=== PATIENT | female | born 1960 | race Caucasian/White ===

== ENCOUNTER → 2020-04-15 | Outpatient (CLI) | payer OTHER ==
[2020-04-15 10:28] LABS: BASO # 0.1 10^3/uL (0.0-0.2); BASO % 1.4 % (0.0-1.0); EOS # 0.1 10^3/uL (0.0-0.5); EOS % 3.2 % (0.0-3.0); HEMATOCRIT 41.6 % (36.0-47.0); HEMOGLOBIN 13.2 g/dl (12.0-15.5); LYMPH # 1.7 10^3/uL (1.5-5.0); LYMPH % 38.2 % (24.0-44.0); MEAN CORPUSCULAR HEMOGLOBIN 30.1 pg (27.0-33.0); MEAN CORPUSCULAR HGB CONC 31.7 g/dl (32.0-36.5); MEAN CORPUSCULAR VOLUME 94.8 fl (80.0-96.0); MONO # 0.5 10^3/uL (0.0-0.8); MONO % 12.4 % (0.0-5.0); NEUTROPHILS # 1.9 10^3/uL (1.5-8.5); NEUTROPHILS % 44.8 % (36.0-66.0); PLATELET COUNT, AUTOMATED 344 10^3/uL (150-450); RED BLOOD COUNT 4.39 10^6/uL (4.00-5.40); WHITE BLOOD COUNT 4.3 10^3/uL (4.0-10.0)
== END ==
LOC: M PLALAB 08:17
PROVIDERS: ATTEND Family Medicine
DX: D72.819 Decreased white blood cell count, unspecified (principal)

== ENCOUNTER → 2021-06-30 | Outpatient (CLI) | payer OTHER ==
[2021-06-30 15:58] LABS: FREE T4 1.31 NG/DL (0.76-1.46); THYROID STIMULATING HORMONE 0.511 uIU/ML (0.358-3.740)
== END ==
LOC: M PLALAB 12:56
PROVIDERS: ATTEND Internal Medicine Cardiovascular Disease
DX: R00.2 Palpitations (principal); R23.2 Flushing

== ENCOUNTER 2022-10-11 17:27 | Emergency (ER) | payer OTHER ==
[~2022-10-11] VITALS: Ht 165.1 cm; Wt 66.4 kg
[2022-10-11] MEDS ORDERED: IRBE75TA4 (17:43)
[2022-10-11] MEDS ORDERED: MONT10TA97 (17:43)
[2022-10-11] MEDS ORDERED: ARNU1INH3 (17:43)
[2022-10-11] MEDS ORDERED: LIDOCAINE 4% CREAM 5GM (LMX4) TOP ONE (20:05)
[2022-10-11] MEDS ORDERED: ACETAMINOPHEN 500 MG TAB PO ONE (20:05)
[2022-10-11 20:35] LABS: BASO # 0.1 10^3/uL (0.0-0.2); BASO % 0.5 % (0.0-1.0); HEMOGLOBIN 13.1 g/dl (12.0-15.5); LYMPH # 0.9 10^3/uL (1.5-5.0); LYMPH % 7.7 % (24.0-44.0); MEAN CORPUSCULAR HEMOGLOBIN 30.8 pg (27.0-33.0); MEAN CORPUSCULAR HGB CONC 32.8 g/dl (32.0-36.5); MEAN CORPUSCULAR VOLUME 93.9 fl (80.0-96.0); MONO # 0.7 10^3/uL (0.0-0.8); MONO % 5.9 % (2.0-8.0); NEUTROPHILS # 9.8 10^3/uL (1.5-8.5); NEUTROPHILS % 85.5 % (36.0-66.0); PLATELET COUNT, AUTOMATED 319 10^3/uL (150-450); RED BLOOD COUNT 4.26 10^6/uL (4.00-5.40); WHITE BLOOD COUNT 11.4 10^3/uL (4.0-10.0)
[2022-10-11] MEDS ORDERED: ISOVUE-370 76% 100ML VIAL As Ordered ONE (20:53)
[2022-10-11 23:01] VITALS: BP 178/85; TEMP 97.3; O2SAT 98
== END 2022-10-11 23:07 | disposition home or self-care (01) ==
LOC: M ED 17:27
DX: S42.002A Fracture of unspecified part of left clavicle, initial encounter for closed fracture (principal); S20.20XA Contusion of thorax, unspecified, initial encounter; I25.84 Coronary atherosclerosis due to calcified coronary lesion; E04.2 Nontoxic multinodular goiter; I10 Essential (primary) hypertension; J45.909 Unspecified asthma, uncomplicated; W10.8XXA Fall (on) (from) other stairs and steps, initial encounter; Z79.899 Other long term (current) drug therapy
CPT/HCPCS: 36415; 70491; 71260; 73000; 73030; 73060; 80047; 85025; 99284; Q9967

== ENCOUNTER → 2022-11-29 | Outpatient (CLI) | payer OTHER ==
[~2022-11-29] MED LIST: ARNU1INH3; IRBE75TA4; MONT10TA97
[2022-11-29 11:19] LABS: BASO # 0.1 10^3/uL (0.0-0.2); BASO % 1.7 % (0.0-1.0); EOS # 0.1 10^3/uL (0.0-0.5); EOS % 2.1 % (0.0-3.0); HEMATOCRIT 39.5 % (36.0-47.0); HEMOGLOBIN 12.5 g/dl (12.0-15.5); LYMPH # 1.5 10^3/uL (1.5-5.0); LYMPH % 35.4 % (24.0-44.0); MEAN CORPUSCULAR HGB CONC 31.6 g/dl (32.0-36.5); MEAN CORPUSCULAR VOLUME 94.7 fl (80.0-96.0); MONO # 0.7 10^3/uL (0.0-0.8); MONO % 15.7 % (2.0-8.0); NEUTROPHILS # 1.9 10^3/uL (1.5-8.5); NEUTROPHILS % 44.9 % (36.0-66.0); PLATELET COUNT, AUTOMATED 304 10^3/uL (150-450); RED BLOOD COUNT 4.17 10^6/uL (4.00-5.40); WHITE BLOOD COUNT 4.2 10^3/uL (4.0-10.0)
[2022-11-29 11:48] LABS: FREE T4 1.42 NG/DL (0.89-1.76)
[2022-11-29 11:49] LABS: THYROID STIMULATING HORMONE 0.982 uIU/ML (0.55-4.78)
[2022-11-29 11:50] LABS: ALBUMIN 3.9 G/DL (3.2-5.2); ALKALINE PHOSPHATASE 66 U/L (46-116); ALT/SGPT 15 U/L (7.0-40); AST/SGOT 15 U/L (<34); BILIRUBIN,TOTAL 0.6 MG/DL (0.3-1.2); BLOOD UREA NITROGEN 12 MG/DL (9-23); CALCIUM LEVEL 9.5 MG/DL (8.3-10.6); CARBON DIOXIDE LEVEL 30 MMOL/L (20-31); CHLORIDE LEVEL 101 MMOL/L (98-107); CHOLESTEROL LEVEL 172 MG/DL (<200); CHOLESTEROL RISK RATIO 2.49 (<5); CREATININE FOR GFR 0.68 MG/DL (0.55-1.30); GLOMERULAR FILTRATION RATE > 60.0 (>45); GLUCOSE, FASTING 92 MG/DL (74-106); LDL CHOLESTEROL 92.8 MG/DL (<100); POTASSIUM SERUM 4.2 MMOL/L (3.5-5.1); SODIUM LEVEL 138 MMOL/L (136-145); TRIGLYCERIDES LEVEL 51 MG/DL (<150)
[2022-11-29 11:51] LABS: TOTAL 25(OH) VITAMIN D 44.8 NG/ML (20.0-100.0)
== END ==
LOC: M PLALAB 07:59
PROVIDERS: ATTEND Nurse Practitioner Family
DX: I10 Essential (primary) hypertension (principal); R53.83 Other fatigue; E55.9 Vitamin D deficiency, unspecified; E78.5 Hyperlipidemia, unspecified

== ENCOUNTER 2023-07-04 06:56 | Day surgery (SDC) | payer OTHER ==
[~2023-07-04] VITALS: Ht 166.4 cm; Wt 68.0 kg
[~2023-07-04 06:56] MED LIST changes: +AVAP75TA7 PO; +BREO1INH3 INH; +CALC600T60 PO; +IRBE75TA11; -IRBE75TA4; +MONT10TA97 PO; +THERTAB52 PO; +VITA100093 PO
[2023-07-04] MEDS: NS 1,000 ML IV ONE (07:17)
[2023-07-04] MEDS ORDERED: propofoL 200 MG/20 ML VIAL As Ordered ONE (08:08)
[2023-07-04] MEDS ORDERED: LIDOCAINE 2% 100MG/5ML SDV (FOR ANES.) As Ordered ONE (08:08)
[2023-07-04 08:40] VITALS: TEMP 96.9
[2023-07-04 09:15] VITALS: BP 139/65; O2SAT 98
== END 2023-07-04 09:25 | disposition home or self-care (01) ==
LOC: M OPP 06:56
PROVIDERS: ATTEND Internal Medicine Gastroenterology
DX: Z12.11 Encounter for screening for malignant neoplasm of colon (principal); K64.4 Residual hemorrhoidal skin tags; K64.8 Other hemorrhoids; K57.30 Diverticulosis of large intestine without perforation or abscess without bleeding; Z79.51 Long term (current) use of inhaled steroids; Z79.899 Other long term (current) drug therapy; Z88.6 Allergy status to analgesic agent; Z88.8 Allergy status to other drugs, medicaments and biological substances

== ENCOUNTER → 2024-06-17 | Outpatient (REF) | payer OTHER ==
[2024-06-18 15:03] LABS: RUBEOLA IgG ANTIBODY > 300.00 AU/mL (>16.49)
== END ==
LOC: M LAB REF 12:54
PROVIDERS: ATTEND Internal Medicine Pulmonary Disease
DX: J45.40 Moderate persistent asthma, uncomplicated (principal)

== ENCOUNTER → 2024-11-12 | Outpatient (REF) | payer OTHER ==
[2024-11-12 18:39] LABS: BASO # 0.1 10^3/uL (0.0-0.2); BASO % 0.9 % (0.0-1.0); EOS # 0.0 10^3/uL (0.0-0.5); EOS % 0.7 % (0.0-3.0); LYMPH # 1.4 10^3/uL (1.5-5.0); LYMPH % 24.3 % (24.0-44.0); MONO # 0.5 10^3/uL (0.0-0.8); MONO % 8.2 % (2.0-8.0); NEUTROPHILS # 3.9 10^3/uL (1.5-8.5); NEUTROPHILS % 65.7 % (36.0-66.0); PLATELET COUNT, AUTOMATED 342 10^3/uL (150-450)
== END ==
LOC: M LAB REF 17:35
PROVIDERS: ATTEND Internal Medicine Pulmonary Disease
DX: J45.40 Moderate persistent asthma, uncomplicated (principal)

== ENCOUNTER → 2024-12-16 | Outpatient (CLI) | payer OTHER | LOC: M RAD 16:03 | PROVIDERS: ATTEND Nurse Practitioner Family | DX: M25.862 Other specified joint disorders, left knee (principal) ==

== ENCOUNTER → 2025-01-01 | Outpatient (REF) | payer OTHER | LOC: M SFHCDERM 08:31 | PROVIDERS: ATTEND Surgery | DX: L72.0 Epidermal cyst (principal) ==